=== PATIENT | male | born 1965 | race Caucasian/White ===

== ENCOUNTER 2017-03-27 06:39 | Outpatient (CLI) | payer OTHER ==
[2017-03-27] VITALS (9 sets, daily range): BP systolic 105–156; BP diastolic 64–88
[~2017-03-27] VITALS: Ht 177.8 cm; Wt 104.3 kg
[2017-03-27] MEDS ORDERED: CYCL5TAB PO (07:03)
[2017-03-27] MEDS ORDERED: TELM40TA PO (07:03)
[2017-03-27] MEDS ORDERED: OMEP20TA63 PO (07:03)
[2017-03-27] MEDS ORDERED: SUVO10TA PO (07:03)
[2017-03-27] MEDS ORDERED: OMEG100021 PO (07:03)
[2017-03-27 07:26] LABS: HEMATOCRIT 44.9 % (39.0-53.0); HEMOGLOBIN 15.4 g/dL (13.0-17.5); RED BLOOD COUNT 4.91 x10^6/uL (4.30-5.70); RED CELL DISTRIBUTION WIDTH 13.1 % (11.5-14.5); WHITE BLOOD COUNT 6.5 x10^3/uL (4.0-11.0)
[2017-03-27] MEDS ORDERED: LIDOCAINE 2% 20 ML VIAL. ONE (07:32)
[2017-03-27 07:40] LABS: INR 1.1 (0.8-1.1); PROTHROMBIN TIME PATIENT 13.3 SEC (11.7-14.0)
[2017-03-27] MEDS ORDERED: IODIXANOL 320 MG/ML 100 ML VIAL. ONE (07:44)
[2017-03-27 07:56] LABS: CALCIUM 8.7 mg/dL (8.5-10.1); GFR 78.2; POTASSIUM 4.2 mmol/L (3.5-5.1)
[2017-03-27] MEDS ORDERED: MIDAZOLAM HCL/PF 2 MG/2 ML VIAL. ONE ×2 (08:06→08:20)
[2017-03-27] MEDS ORDERED: fentaNYL PF VIAL 100 MCG/2 ML VIAL ONE (08:06)
[2017-03-27] MEDS ORDERED: HEPARIN for IV BOLUS 10,000 UNIT/10 ML VIAL. ONE (08:07)
[2017-03-27] MEDS ORDERED: VERAPAMIL 5 MG/2 ML VIAL. ONE (08:07)
[2017-03-27] MEDS ORDERED: NITROGLYCERIN 200 MCG/2 ML SYRINGE FOR CATH/VASC LAB. ONE (08:08)
[2017-03-27] MEDS ORDERED: MIDAZOLAM HCL/PF 2 MG/2 ML VIAL. IV ONE (08:30)
[2017-03-27] MEDS ORDERED: HEPARIN for IV BOLUS 10,000 UNIT/10 ML VIAL. IART ONE (08:30)
[2017-03-27] MEDS ORDERED: NITROGLYCERIN 200 MCG/2 ML SYRINGE FOR CATH/VASC LAB. IART ONE (08:30)
[2017-03-27] MEDS ORDERED: fentaNYL PF VIAL 100 MCG/2 ML VIAL IV ONE (08:30)
[2017-03-27] MEDS ORDERED: VERAPAMIL 5 MG/2 ML VIAL. IART ONE (08:30)
[2017-03-27] MEDS ORDERED: IODIXANOL 320 MG/ML 100 ML VIAL. IART ONE (08:30)
[2017-03-27] MEDS ORDERED: LIDOCAINE 2% 20 ML VIAL. IJ ONE (08:30)
[2017-03-27] MEDS ORDERED: IV 1/2 NORMAL SALINE 1,000 ML IV SCH (08:46)
--- NOTE | 2017-03-27 08:46 | PDOC ---
MODERATE SEDATION ASSESSMENT RISKS/ALTERNATIVES Risks/Alternatives Risks and alternatives of this type of sedation and procedure discussed with: RISK/ALTERNATIVES: Patient H & P ON CHART H & P H & P on chart and reviewed for co-morbid conditions and appropriate labs. H&P ON CHART: Yes STATUS PREG STATUS ASSESSED: N/A MEDS/ALLERGIES REVIEWED Meds/Allergies Reviewed Medications and Allergies including time and route of recently administered narcotics and sedatives. MEDS/ALLERGIES REVIEWED: Yes ASA RATING ASA RATING: II AIRWAY ASSESSMENT Airway Assessment Airway patency, oral function limitations, presence of caps, crowns, dentures, partials, and ability to extend neck assessed. AIRWAY ASSESSMENT: Yes MALLAMPATI SCORE MALLAMPATI SCORE: II PRE-SEDATION ASSESSMENT PRE-SEDATION ASSESSMENT: Yes MARTHA ROSALES MD Mar 27, 2017 08:46
--- NOTE | 2017-03-27 09:12 | CARD ---
MR#: [id number] Date of Study: 03/27/2017 Ordering Physician: MARTHA DEL TORO, Referring Physician: MARTHA DEL TORO Tech: RT Shadia (R) APPROVED REPORT Technologist: RT Shadia (R) Nurse: Franca Isaac R.N. Procedure(s) performed: Left heart catheterization, selective coronary angiography and left ventricul ography via right transradial approach Moderate sedation: 30 INDICATION The indication(s) include : unstable angina . PROCEDURE NARRATIVE After explaining the risks, benefits and alternative options, informed consent was obtained from carrol ent. Patient was brought to the cardiac Fitness And Wellness Manager and right wrist was prepped and draped in the usual fashion after confirming a positive modified Saran's test. Arterial access was obtained in the righ t radial artery and a 6 Guatemalan sheath was inserted. 6 [place] Bharat catheter was used to perform jian ective angiography of the left and right coronary arteries. 6 [place] pigtail catheter was used to pe rform left ventriculography. Patient tolerated the procedure well. Hemostasis was achieved using TR band. There were no immediate complications. The following findings were noted. FINDINGS 1. Hemodynamics: Left ventricular end-diastolic pressure of 17 mmHg. No pullback gradient across th e aortic valve. 2. Left ventriculography: Normal left ventricle systolic function with ejection fraction estimated at 55-60%. No significant mitral regurgitation seen. 3. Coronary angiography: a. The left main coronary artery arose from the left sinus of Valsalva, gave rise to the left anteri or descending and left circumflex arteries and did not show any significant stenosis. b. The left anterior descending artery did not show any significant stenosis. c. The left circumflex artery showed 20% stenosis in the first obtuse marginal branch. d. The right coronary artery was a large and dominant vessel arising from the right sinus of Valsalv a that did not show any significant stenosis. Conclusion 1. No significant coronary artery disease 2. Normal left ventricle systolic function with ejection fraction estimated at 55-60% Recommendations Cardiac Risk Reduction Program Signed by : Martha Del Toro, Electronically Approved : 03/27/2017 09:12:10
[2017-03-27] MEDS ORDERED: hydrALAZINE 20 MG/ML VIAL. ONE (09:35)
== END 2017-03-27 11:00 | disposition home or self-care (01) ==
LOC: CCL 06:39
PROVIDERS: ATTEND Internal Medicine Cardiovascular Disease
DX: I25.10 Atherosclerotic heart disease of native coronary artery without angina pectoris (principal); I10 Essential (primary) hypertension; E78.00 Pure hypercholesterolemia, unspecified; Z79.01 Long term (current) use of anticoagulants
CPT/HCPCS: 36415; 80048; 85027; 85610; 85730; 93458; 99152; 99153; C1769; C1892; J1644; J2250; J3010; J3490; J2001

== ENCOUNTER → 2018-01-14 | Outpatient (CLI) | payer OTHER ==
[2017-03-27 10:55] VITALS: BP 120/64
[~2018-01-14] MED LIST: CYCL5TAB PO; OMEG100021 PO; OMEP20TA63 PO; SUVO10TA PO; TELM40TA PO
--- NOTE | 2018-01-14 11:59 | KCIC ---
3 views right shoulder 01/14/2018 12:00 AM Indication: Right shoulder pain. Probable rotator cuff tear Comparison: None Findings: There is no acute fracture or dislocation. Articular surfaces are uninterrupted and smooth. Soft tissues are unremarkable. Impression: No evidence of acute osseous abnormality. Electronically signed by: Trey Maynard MD (01/14/2018 11:56 AM) [id number]
== END | disposition home or self-care (01) ==
LOC: KCIC 09:52
PROVIDERS: ATTEND Family Medicine
DX: M75.101 Unspecified rotator cuff tear or rupture of right shoulder, not specified as traumatic (principal); X50.9XXA Other and unspecified overexertion or strenuous movements or postures, initial encounter; Y93.89 Activity, other specified; Y92.89 Other specified places as the place of occurrence of the external cause; Y99.8 Other external cause status
CPT/HCPCS: 73030

== ENCOUNTER → 2018-01-19 | Outpatient (CLI) | payer OTHER ==
[2017-03-27 10:55] VITALS: BP 120/64
--- NOTE | 2018-01-19 11:46 | KCIC ---
CHEST PA LATERAL History: Chest tightness. Left upper chest tightness for one year.. Comparison: None. Heart size: Within normal limits. Estelita/mediastinum: Within normal limits Lungs: No focal airspace consolidation. Pleura: No evidence of pleural effusion. Pneumothorax: None visualized Bones: Regional skeleton appears grossly intact. Miscellaneous: None Impression: No acute radiographic findings. Electronically signed by: Kb Delarosa MD (01/19/2018 11:43 AM) [id number]
== END | disposition home or self-care (01) ==
LOC: KCIC 09:29
PROVIDERS: ATTEND Family Medicine
DX: R07.89 Other chest pain (principal)
CPT/HCPCS: 71046

== ENCOUNTER → 2018-02-09 | Outpatient (CLI) | payer OTHER ==
[2017-03-27 10:55] VITALS: BP 120/64
--- NOTE | 2018-02-09 16:26 | KCIC ---
MRI right shoulder without contrast dated 02/09/2018 3:30 PM Indication: Shoulder pain recent injury 1 month ago limited range of motion. Comparison: No comparison is available. Technique: Routine multiplanar multisequence imaging performed. . Findings: Intermediate T2 signal throughout the supraspinatus and infraspinatus portions of the rotator cuff. There is mild articular and bursal surface partial tearing of the supraspinatus footplate. Partial thickness tearing at the central supraspinatus extends approximately 60-70% thickness. Suspected small full-thickness tear of the anterior supraspinatus and upper margin of subscapularis. No significant cuff retraction. The long head biceps tendon is subluxed medially and partially over the anterior margin of the bicipital groove. There is mild increased signal in the tendon substance without evidence of full-thickness tear. There is blunted morphology and linear signal at the posterior superior labrum. The inferior labrum and anterior labrum are intact. Mild thinning of the glenoid articular cartilage without full-thickness cartilage defect. No joint effusion or loose body. Mild hypertrophic change of the AC joint with undersurface spurring of the acromium. Trace amount of subacromial/subdeltoid bursal fluid. Acromium is type III morphology. Suprascapular and spinoglenoid notches are clear. No significant muscle edema or muscle atrophy. IMPRESSION: 1. Rotator cuff tendinopathy with small full-thickness tear of the supraspinatus/subscapularis junction. There is no significant cuff retraction. 2. Biceps tendinopathy with medial subluxation of the biceps tendon from the bicipital groove. 3. Moderate AC joint arthropathy with undersurface spurring. Small subacromial/subdeltoid bursal effusion. 4. Suspected SLAP tear of the posterior superior labrum. Electronically signed by: Kb Espino MD (02/09/2018 4:23 PM) [facility]
== END | disposition home or self-care (01) ==
LOC: KCIC MRI 15:15
PROVIDERS: ATTEND Orthopaedic Surgery Sports Medicine
DX: S43.081A Other subluxation of right shoulder joint, initial encounter (principal); M75.101 Unspecified rotator cuff tear or rupture of right shoulder, not specified as traumatic; X58.XXXA Exposure to other specified factors, initial encounter; Y93.89 Activity, other specified; Y92.89 Other specified places as the place of occurrence of the external cause; Y99.8 Other external cause status
CPT/HCPCS: 73221

== ENCOUNTER → 2018-03-17 | Day surgery (SDC) | payer OTHER ==
[~2018-03-17] VITALS: Ht 177.8 cm; Wt 108.0 kg
[~2018-03-17] MED LIST changes: +BUPIVACAINE MPF 0.5% 30 ML VIAL. ONE; +DEXAMETHASONE SOD PHOS 20 MG/5 ML VIAL. ONE; +DOCU-109 PO; +EPINEPHrine VIAL 30 MG/30 ML VIAL ONE; +GLYCOPYRROLATE 1 MG/5 ML VIAL. ONE; +HYDROmorphone 2 MG/ML VIAL IV PRN; +IV RINGERS,LACTATED 1000ML 1,000 ML IV SCH; +KETOROLAC 30 MG/ML INJ FOR OR. INJ ONE; +LIDOCAINE 1% PF 2 ML VIAL. ID PRN; +LIDOCAINE 1% PF 30 ML VIAL. ONE; +LIDOCAINE 2% PF Vial for OR 5 ML VIAL. ONE; +MIDAZOLAM HCL/PF 2 MG/2 ML VIAL. ONE; +MORPHINE SULFATE 2 MG/ML VIAL. IV PRN; +ONDA8TAB9 PO; +ONDANSETRON PF 4 MG/2 ML VIAL. IV PRN; +ONDANSETRON PF 4 MG/2 ML VIAL. ONE; +OXYC1TAB15 PO; +PHENYLEPHRINE 10 MG/ML VIAL. ONE; +PROCHLORPERAZINE 10 MG/2 ML VIAL. IV PRN; +PROPOFOL 20 ML IV ONE; +ROPIVacaine 0.5% PF 20 ML VIAL. ONE; +fentaNYL PF VIAL 100 MCG/2 ML VIAL IV PRN; +fentaNYL PF VIAL 100 MCG/2 ML VIAL ONE; +oxyCODONE/APAP 5/325 1 TAB TABLET PO ONE
--- NOTE | 2018-03-17 07:39 | DISCH ---
DISCHARGE INSTRUCTIONS Condition on Discharge Condition on Discharge: Stable Activity After Discharge Activity Instructions for Disc: No restrictions, Activity as tolerated Other activity instructions: ARM TO REMAIN IN SLING Lifting Instructions after Dis: No pulling or pushing Driving Instructions after Dis: Do not drive today Weight Bearing Status after Di: Full weight bearing, As tolerated, Non weight bearing Diet after Discharge Diet after Discharge: Regular Diet Texture: Regular Liquid Texture: Thin Liquid Wound Incision Care Wound Care Equipment: Dressings Contacting the DRRicardo after DC Call your doctor for: Concerns you may have Follow-Up Follow up with: Harleen in 2 wks Treatment/Equipment after DC Adaptive Equipment Issued: None MONO CINTRON II, MD Mar 17, 2018 07:39
--- NOTE | 2018-03-17 08:53 | PDOC4 ---
Operative Note Operative Note Date of procedure: 03/17/2018 Surgeon: Odilon Cintron Operations Project Manager: Frieda Mckenna, certified novell administrator Preoperative diagnosis: #1 right biceps tendinitis #2 right shoulder rotator cuff partial tear Postoperative diagnosis: Same Procedure performed: #1 arthroscopic labral and rotator cuff debridement #2 open subpectoral biceps tenodesis Anesthesia: Gen. plus regional nerve block Blood loss: 10 mL Complications: None Findings: #1 intact lateral cartilage #2 no loose bodies #3 Small amount of fraying at upper border of subscapularis #4 partial-thickness fraying, approximately 3-4 mm thickness, supraspinatus #5 intact rotator cuff at infraspinatus and teres minor #6 Labrum intact circumferentially with degenerative fraying superiorly. Components inserted: Voss and nephew large suture fix anchor Reason for procedure: Patient is a very pleasant gentleman who has had persistent shoulder pain and dysfunction for several months. He has tried and failed conservative therapies, please see my outpatient consult note for full details. We had a discussion of the risks, benefits, and alternatives to debridement and tenodesis, he repeatedly wished to avoid a rotator cuff repair secondary to his need to return to work very quickly. Description of procedure: Patient was greeted in the preoperative area by myself for the correct extremity was verified and marked. He was taken back to the operative suite after he had regional anesthesia placed by the anesthesiology team. Once in the operating room, underwent successful induction of a general anesthetic. His antibiotics have been started. He was then sat up in a beachchair position with large pad under his legs, C-spine maintained in neutral position, he was secured to the bed with all pressure points padded. After this, right upper extremity and shoulder were prepped and draped in our usual sterile fashion and our standard preoperative timeout was conducted. I then palpated and marked surface anatomy and used a spinal needle to localize a posterior superior portal and incised skin in accordance with this. After this, I entered the glenohumeral joint with the blunt arthroscopic trocar followed by the camera. I then used a spinal needle to localize a anterosuperior portal and incised skin in accordance with this. I then introduced the probe and conducted my diagnostic arthroscopy with above noted findings. I then debrided the frayed edge of the rotator cuff as well as the labrum. Overall, I felt the labrum was intact and anchored well. I then withdrew the arthroscopic instrumentation and palpated and marked for my subpectoral tenodesis incision. I made a vertical incision at the proximal portion of his axilla and bluntly dissected underneath the pectoralis major tendon and over top of the proximal humerus. I placed a 90 Hohmann retractor. I palpated for the biceps tendon, I had an Army-Priddy in the inferior portion of the incision. After identifying the biceps tendon exposed and heat clamped it with a hemostat proximal to my anchor point. I then placed my suture anchor and shuttled the 2 suture limbs through using a [employer]Beak passer in a lasso type configuration and tied these down securely. I cut the suture ends and then cut the biceps tendon with a scalpel between my hemostat and the suture anchor. I then removed the retractors and repositioned the arm and introduce the camera back into the glenohumeral joint and took the biceps tendon down off of the labrum with a Metzenbaum scissors. I then used a shaver to debride the stump. I then withdrew the biceps tendon to my subpectoral incision visualizing and exit. After this, I removed all excess arthroscopic fluid from the glenohumeral joint. The portals were closed with simple interrupted 3-0 nylon. The shoulder and arm were cleansed and dried and a sterile dressing was applied followed by an abduction pillow sling. Patient tolerated surgery well. No complications. At the conclusion of surgery, the patient was laid gently supine and transferred gently supine to the recovery room cart and taken to PACU in a stable and extubated condition. Postoperative plan is to be nonweightbearing for 4 weeks. Arm to remain in the sling. Postoperative instructions were discussed with the patient, their spouse, and given and written form. Miguelangel follow up with me in 2 weeks, sooner should a problem arise. ODILON CINTRON II, MD Mar 17, 2018 08:53
[2018-03-17 10:05] VITALS: BP 119/77
== END | disposition home or self-care (01) ==
LOC: SURG 06:13
PROVIDERS: ATTEND Orthopaedic Surgery Sports Medicine
DX: M75.101 Unspecified rotator cuff tear or rupture of right shoulder, not specified as traumatic (principal); I10 Essential (primary) hypertension; G47.30 Sleep apnea, unspecified; E78.5 Hyperlipidemia, unspecified; B36.0 Pityriasis versicolor; M25.511 Pain in right shoulder; Z82.49 Family history of ischemic heart disease and other diseases of the circulatory system; Z79.899 Other long term (current) drug therapy
CPT/HCPCS: 23430; 29823; A7015; C1782; C1876; J0171; J0690; J1100; J1885; J2001; J2250; J2405; J2704; J2795; J3010; J3490